=== PATIENT | female | born 1940 | race Caucasian/White ===

== ENCOUNTER → 2021-02-09 | Outpatient (CLI) | payer MEDICARE, OTHER ==
[~2021-02-09] MED LIST: ATOR20TA OR; CALCTAB83 PO; CARB0.5D8 OP; ESOM40CA39 OR; IRBE75TA30 OR; LEVO88TA4 OR; LOSA-69 PO; LUMIGAN; MULT-1018 PO; RALO60TA13 PO; TRIAPOW43 PO; [UNRECOGNIZED DRUG - OTHER]
== END | disposition home or self-care (01) ==
LOC: Rad HDHVI 07:46
PROVIDERS: ATTEND Internal Medicine Cardiovascular Disease
DX: Z01.810 Encounter for preprocedural cardiovascular examination (principal)
CPT/HCPCS: 93306

== ENCOUNTER → 2021-02-14 | Outpatient (CLI) | payer MEDICARE, OTHER ==
[~2021-02-14] VITALS: Ht 165.1 cm; Wt 67.1 kg
[~2021-02-14] MED LIST changes: +ADENOSINE 56 MG in GIVE UN-DILUTED 0 ML IV ONE; +ADENOSINE 90 MG/30 ML INJ IV ONE
== END | disposition home or self-care (01) ==
LOC: Rad HDHVI 09:22
PROVIDERS: ATTEND Internal Medicine Cardiovascular Disease
DX: Z01.810 Encounter for preprocedural cardiovascular examination (principal); I10 Essential (primary) hypertension; E78.5 Hyperlipidemia, unspecified
CPT/HCPCS: 78452; 93005; 96374; 96375; A9500; J0153

== ENCOUNTER 2021-03-02 13:12 | Emergency (ER) | payer MEDICARE, OTHER ==
[~2021-03-02] VITALS: Ht 165.1 cm; Wt 67.1 kg
[~2021-03-02 13:12] MED LIST changes: -ADENOSINE 56 MG in GIVE UN-DILUTED 0 ML IV ONE; -ADENOSINE 90 MG/30 ML INJ IV ONE
[2021-03-02] MEDS ORDERED: SODIUM CHLORIDE 0.9% 1,000 ML IVB ONE (14:15)
[2021-03-02] MEDS ORDERED: ONDANSETRON HCL 4 MG/2 ML VIAL IV ONE (14:15)
[2021-03-02 15:19] LABS: Basophils # (auto) 0 10 ^3/uL (0-0.2); Basophils % (auto) 0.4 % (0.0-2.0); Eosinophils # (auto) 0.4 10 ^3/uL (0-0.8); Eosinophils % (auto) 5.1 % (0.0-7.0); Hematocrit 42.8 % (36.0-46.0); Hemoglobin 14.5 g/dL (12.2-16.2); Lymphocytes # (auto) 1.7 10 ^3/uL (0.4-5.4); Lymphocytes % (auto) 21.5 % (10.0-50.0); Mean Corpuscular Hemoglobin 31.6 pg (28.0-32.0); Mean Corpuscular Hgb Conc. 33.9 g/dL (32.0-36.0); Mean Corpuscular Volume 93.3 fL (80.0-100.0); Monocytes # (auto) 0.6 10 ^3/uL (0-1.3); Monocytes % (auto) 8.1 % (0.0-12.0); Neutrophils % (auto) 64.9 % (37.0-80.0); Nucleated Red Blood Cells % 0.2 %; Red Blood Cells 4.59 10^6/uL (4.0-5.20); White Blood Cell 7.7 10^3/uL (4.4-10.8)
[2021-03-02 15:33] LABS: Albumin 3.6 g/dL (3.4-5.0); Potassium 3.2 mmol/L (3.5-5.1)
[2021-03-02 15:36] LABS: BUN/Creatinine Ratio 17.6
[2021-03-02 15:39] LABS: Bilirubin, Total 0.9 mg/dL (0.2-1.0)
[2021-03-02 15:50] LABS: INR 0.95 (0.9-1.15); Partial Thromboplastin Time 22.5 sec (23.0-31.2)
[2021-03-02 16:51] LABS: Urine Bacteria FEW /hpf (None Seen); Urine Blood Negative /uL (Negative); Urine Specific Gravity 1.007 (1.001-1.035); Urine WBC 1 /hpf (0 - 5)
[2021-03-02] MEDS ORDERED: POTASSIUM CHL 20 Meq TABLET PO ONE (17:15)
[2021-03-02] MEDS ORDERED: cefTRIAXone 1GM/50ML D5W 50 ML IV ONE (17:15)
[2021-03-02] MEDS ORDERED: diphenhdrAMINE HCL 50 MG/1 ML VL IV ONE (18:15)
[2021-03-02 18:29] VITALS: BP 145/64
== END 2021-03-02 19:20 | disposition home or self-care (01) ==
LOC: ER 13:12
DX: N30.00 Acute cystitis without hematuria (principal); K57.90 Diverticulosis of intestine, part unspecified, without perforation or abscess without bleeding; E87.6 Hypokalemia; R11.0 Nausea; R07.89 Other chest pain; I10 Essential (primary) hypertension; E78.5 Hyperlipidemia, unspecified; E03.9 Hypothyroidism, unspecified; K21.9 Gastro-esophageal reflux disease without esophagitis; F41.9 Anxiety disorder, unspecified; F32.9 Major depressive disorder, single episode, unspecified; Z79.899 Other long term (current) drug therapy; Z90.710 Acquired absence of both cervix and uterus; Z90.89 Acquired absence of other organs
CPT/HCPCS: 36415; 71045; 74176; 80053; 81001; 83690; 83735; 85025; 85610; 85730; 93005; 96365; 96375; 99285; J0696; J1200; J2405; 92950

== ENCOUNTER → 2021-04-12 | Day surgery (SDC) | payer MEDICARE, OTHER ==
[2021-04-07 10:48] LABS: Basophils # (auto) 0.1 10 ^3/uL (0-0.2); Eosinophils # (auto) 0.1 10 ^3/uL (0-0.8); Eosinophils % (auto) 2.1 % (0.0-7.0); Hematocrit 40.6 % (36.0-46.0); Lymphocytes # (auto) 1.5 10 ^3/uL (0.4-5.4); Lymphocytes % (auto) 31.4 % (10.0-50.0); Mean Corpuscular Hemoglobin 32.2 pg (28.0-32.0); Mean Corpuscular Hgb Conc. 34.4 g/dL (32.0-36.0); Mean Corpuscular Volume 93.6 fL (80.0-100.0); Monocytes # (auto) 0.4 10 ^3/uL (0-1.3); Monocytes % (auto) 7.9 % (0.0-12.0); Neutrophils # (auto) 2.8 10 ^3/uL (1.6-8.6); Neutrophils % (auto) 57.6 % (37.0-80.0); Platelet Count (auto) 139 10^3/uL (140-450); Red Blood Cells 4.34 10^6/uL (4.0-5.20); Red Cell Distribution Width 12.8 % (11.8-14.3); White Blood Cell 4.9 10^3/uL (4.4-10.8)
[2021-04-07 11:02] LABS: INR 0.94 (0.9-1.15); Partial Thromboplastin Time 23.4 sec (23.0-31.2); Urine Bacteria NONE SEEN /hpf (None Seen); Urine Blood Negative /uL (Negative); Urine Mucus FEW (None Seen); Urine Specific Gravity 1.017 (1.001-1.035); Urine WBC 1 /hpf (0 - 5)
[2021-04-07 12:02] LABS: Albumin 3.6 g/dL (3.4-5.0); Calcium 9.6 mg/dL (8.5-10.1); Potassium 4.2 mmol/L (3.5-5.1)
[2021-04-07 12:07] LABS: BUN/Creatinine Ratio 19.8; Bilirubin, Total 0.6 mg/dL (0.2-1.0); Total Protein 6.7 g/dL (6.4-8.2)
[~2021-04-12] VITALS: Ht 165.1 cm; Wt 64.4 kg
[~2021-04-12] MED LIST changes: +BUPIVACAINE 0.25% INJ 50ML VIAL ONE; -CALCTAB83 PO; -CARB0.5D8 OP; -ESOM40CA39 OR; +GLYCOPYRROLATE 0.2 MG/ML 1ML VIAL ONE; +HYDROmorphone HCL 2 MG/ML VL IV PRN; +LIDOCAINE 2% (LOCAL ANESTH.) PF 5ml SDV ONE; +LIDOCAINE W/ EPINEPHRINE 1% 20ML VIAL ONE; -LOSA-69 PO; +MIDAZOLAM HCL 1MG/1ML-2 ML VIAL ONE; -MULT-1018 PO; +ONDANSETRON HCL 4 MG/2 ML VIAL IV PRN; +ONDANSETRON HCL 4 MG/2 ML VIAL ONE; +PROPOFOL 10 MG/ML 20 ML IV ONE; +ROCURONIUM 10MG/ML 10ML VIAL IV ONE; +ceFAZolin 1GM/50ML 100 ML IV ONE; +fentaNYL CITRATE 100 MCG/2 ML VL ONE
[2021-04-12 10:50] VITALS: BP 137/63
== END | disposition home or self-care (01) ==
LOC: SUR 07:06
PROVIDERS: ATTEND Surgery
DX: K40.90 Unilateral inguinal hernia, without obstruction or gangrene, not specified as recurrent (principal); H40.9 Unspecified glaucoma; K44.9 Diaphragmatic hernia without obstruction or gangrene; I10 Essential (primary) hypertension; Z68.23 Body mass index [BMI] 23.0-23.9, adult; E07.9 Disorder of thyroid, unspecified; F32.9 Major depressive disorder, single episode, unspecified; K21.9 Gastro-esophageal reflux disease without esophagitis; Z20.822 Contact with and (suspected) exposure to COVID-19; Z98.890 Other specified postprocedural states; Z79.899 Other long term (current) drug therapy
CPT/HCPCS: 36415; 49505; 80053; 81001; 85025; 85610; 85730; J0690; J2001; J2250; J2405; J2704; J3010; J3490; Q4100; U0003

== ENCOUNTER → 2022-12-18 | Outpatient (CLI) | payer MEDICARE, OTHER ==
[~2022-12-18] MED LIST changes: -BUPIVACAINE 0.25% INJ 50ML VIAL ONE; -GLYCOPYRROLATE 0.2 MG/ML 1ML VIAL ONE; -HYDROmorphone HCL 2 MG/ML VL IV PRN; -LIDOCAINE 2% (LOCAL ANESTH.) PF 5ml SDV ONE; -LIDOCAINE W/ EPINEPHRINE 1% 20ML VIAL ONE; -MIDAZOLAM HCL 1MG/1ML-2 ML VIAL ONE; -ONDANSETRON HCL 4 MG/2 ML VIAL IV PRN; -ONDANSETRON HCL 4 MG/2 ML VIAL ONE; -PROPOFOL 10 MG/ML 20 ML IV ONE; -ROCURONIUM 10MG/ML 10ML VIAL IV ONE; -ceFAZolin 1GM/50ML 100 ML IV ONE; -fentaNYL CITRATE 100 MCG/2 ML VL ONE
[2022-12-18 11:02] LABS: Basophils # (auto) 0 10 ^3/uL (0-0.2); Basophils % (auto) 0.9 % (0.0-2.0); Eosinophils # (auto) 0.1 10 ^3/uL (0-0.8); Hematocrit 38.3 % (36.0-46.0); Hemoglobin 13.1 g/dL (12.2-16.2); Lymphocytes # (auto) 1.6 10 ^3/uL (0.4-5.4); Lymphocytes % (auto) 32.8 % (10.0-50.0); Mean Corpuscular Hemoglobin 32.6 pg (28.0-32.0); Mean Corpuscular Hgb Conc. 34.1 g/dL (32.0-36.0); Mean Corpuscular Volume 95.4 fL (80.0-100.0); Monocytes # (auto) 0.4 10 ^3/uL (0-1.3); Monocytes % (auto) 8.7 % (0.0-12.0); Neutrophils # (auto) 2.6 10 ^3/uL (1.6-8.6); Neutrophils % (auto) 55.6 % (37.0-80.0); Nucleated Red Blood Cells % 0.1 %; Red Blood Cells 4.02 10^6/uL (4.0-5.20); Red Cell Distribution Width 13.7 % (11.8-14.3); White Blood Cell 4.7 10^3/uL (4.4-10.8)
[2022-12-18 11:28] LABS: Albumin 3.7 g/dL (3.4-5.0); Calcium 9.3 mg/dL (8.5-10.1); Potassium 3.6 mmol/L (3.5-5.1)
[2022-12-18 11:31] LABS: BUN/Creatinine Ratio 19.2; Bilirubin, Total 0.8 mg/dL (0.2-1.0); Total Protein 6.7 g/dL (6.4-8.2)
[2022-12-18 11:33] LABS: Free T4 (Free Thyroxine) 1.78 ng/dL (0.89-1.76)
[2022-12-18 11:34] LABS: Free T3 3.12 pg/mL (2.3-4.2)
== END | disposition home or self-care (01) ==
LOC: LAB 10:29
PROVIDERS: ATTEND Internal Medicine
DX: I10 Essential (primary) hypertension (principal); E03.9 Hypothyroidism, unspecified
CPT/HCPCS: 36415; 80053; 84439; 84443; 84481; 85025

== ENCOUNTER → 2023-03-22 | Outpatient (CLI) | payer MEDICARE, OTHER ==
[~2023-03-22] MED LIST changes: +BIMA0.01 EACHEYE; +CITA-73 PO; +CLOP75TA28 PO; +LEVO88CA2 PO; +LISI40TA16 PO; +METO25TA93 PO; -RALO60TA13 PO; +RALO60TA14 PO
[2023-03-22 08:55] VITALS: BP 191/84
[2023-03-22 09:09] VITALS: BP 188/84
== END | disposition home or self-care (01) ==
LOC: CHF HDHVI 08:32
PROVIDERS: ATTEND Internal Medicine Cardiovascular Disease
DX: Z01.818 Encounter for other preprocedural examination (principal); R00.1 Bradycardia, unspecified; I10 Essential (primary) hypertension; I20.0 Unstable angina
CPT/HCPCS: G0463

== ENCOUNTER 2023-03-28 06:52 | Day surgery (SDC) | payer MEDICARE, OTHER ==
[2023-03-22 10:54] LABS: Basophils # (auto) 0.1 10 ^3/uL (0-0.2); Basophils % (auto) 1.4 % (0.0-2.0); Eosinophils # (auto) 0.1 10 ^3/uL (0-0.8); Eosinophils % (auto) 1.6 % (0.0-7.0); Hematocrit 39.3 % (36.0-46.0); Hemoglobin 13.6 g/dL (12.2-16.2); Lymphocytes # (auto) 1.6 10 ^3/uL (0.4-5.4); Lymphocytes % (auto) 32.7 % (10.0-50.0); Mean Corpuscular Hemoglobin 32.4 pg (28.0-32.0); Mean Corpuscular Hgb Conc. 34.5 g/dL (32.0-36.0); Mean Corpuscular Volume 93.9 fL (80.0-100.0); Monocytes # (auto) 0.4 10 ^3/uL (0-1.3); Monocytes % (auto) 7.5 % (0.0-12.0); Neutrophils # (auto) 2.9 10 ^3/uL (1.6-8.6); Neutrophils % (auto) 56.8 % (37.0-80.0); Nucleated Red Blood Cells % 0.1 %; Red Blood Cells 4.18 10^6/uL (4.0-5.20); Red Cell Distribution Width 13.2 % (11.8-14.3)
[2023-03-22 11:15] LABS: INR 0.96 (0.9-1.15); Partial Thromboplastin Time 24.3 sec (24.6-33.4)
[2023-03-22 11:30] LABS: BUN/Creatinine Ratio 27.9 (10.0-20.0); Calcium 9.4 mg/dL (8.5-10.1); Potassium 3.9 mmol/L (3.5-5.1)
[~2023-03-28] VITALS: Ht 160 cm; Wt 56.7 kg
[2023-03-28] VITALS (10 sets, daily range): BP systolic 126–164; BP diastolic 52–64
[~2023-03-28 06:52] MED LIST changes: -IRBE75TA30 OR; -LEVO88TA4 OR; -RALO60TA14 PO; -TRIAPOW43 PO; -[UNRECOGNIZED DRUG - OTHER]
[2023-03-28] MEDS ORDERED: LIDOCAINE 2%HCL (LOCAL ANESTH.) INJ 20ML MDV ONE (09:25)
[2023-03-28] MEDS ORDERED: IODIXANOL 320MG/ML 100ML BTL IV ONE (09:26)
[2023-03-28] MEDS ORDERED: ANGIOMAX 250 MG VIAL IV ONE (09:28)
[2023-03-28] MEDS ORDERED: MIDAZOLAM HCL 2MG/2ML 2ml VIAL (1mg/ml) ONE (09:28)
[2023-03-28] MEDS ORDERED: SODIUM CHL 0.9% 0 ML ONE (09:28)
[2023-03-28] MEDS ORDERED: fentaNYL CITRATE 100 MCG/2 ML VL ONE (09:28)
[2023-03-28] MEDS ORDERED: IOHEXOL 350 MG/ML 500ML BOTTLE IJ ONE (09:54)
== END 2023-03-28 12:35 | disposition home or self-care (01) ==
LOC: CATH 06:52
PROVIDERS: ATTEND Internal Medicine Cardiovascular Disease
DX: R07.89 Other chest pain (principal); I10 Essential (primary) hypertension; E78.5 Hyperlipidemia, unspecified; E03.9 Hypothyroidism, unspecified; Z79.01 Long term (current) use of anticoagulants; Z79.899 Other long term (current) drug therapy; R06.02 Shortness of breath; R94.39 Abnormal result of other cardiovascular function study
CPT/HCPCS: 36415; 80048; 85025; 85610; 85730; 93458; C1894; J2250; J3010; Q9967; 99152

== ENCOUNTER → 2023-05-31 | Outpatient (CLI) | payer MEDICARE, OTHER | END | disposition home or self-care (01) | LOC: Rad HDHVI 13:15 | PROVIDERS: ATTEND Internal Medicine Cardiovascular Disease | DX: M19.012 Primary osteoarthritis, left shoulder (principal) | CPT/HCPCS: 73030 ==

== ENCOUNTER → 2024-02-19 | Outpatient (CLI) | payer MEDICARE, OTHER | END | disposition home or self-care (01) | LOC: Rad HDHVI 11:42 | PROVIDERS: ATTEND Internal Medicine Cardiovascular Disease | DX: M19.042 Primary osteoarthritis, left hand (principal); M19.041 Primary osteoarthritis, right hand | CPT/HCPCS: 73130 ==

== ENCOUNTER 2024-03-05 08:26 | Inpatient (IN) | payer MEDICARE, OTHER ==
[2024-03-05] VITALS (7 sets, daily range): BP systolic 111–129; BP diastolic 47–64; PULSE 63–83; RESP 13–18; TEMP 97.8–97.9; O2SAT 92–99
[~2024-03-05] VITALS: Ht 160 cm; Wt 60.1 kg
[2024-03-05] MEDS: methylPREDNISolone SOD SUCC 125 MG/2 ML VL IV ONE (09:40)
[2024-03-05] MEDS: ALBUTEROL SULF 2.5 MG/0.5ML(0.5%) NEB SOLN NEB ONE (09:52)
[2024-03-05] MEDS: IPRATROPIUM BROM 0.5 MG/2.5ML INH SOL NEB ONE (09:52)
[2024-03-05 09:57] LABS: Basophils # (auto) 0 10 ^3/uL (0-0.2); Basophils % (auto) 0.5 % (0.0-2.0); Eosinophils # (auto) 0.1 10 ^3/uL (0-0.8); Eosinophils % (auto) 1.1 % (0.0-7.0); Hematocrit 40.8 % (36.0-46.0); Hemoglobin 13.4 g/dL (12.2-16.2); Lymphocytes % (auto) 20.6 % (10.0-50.0); Mean Corpuscular Hemoglobin 31.4 pg (28.0-32.0); Mean Corpuscular Hgb Conc. 32.8 g/dL (32.0-36.0); Mean Corpuscular Volume 95.6 fL (80.0-100.0); Monocytes # (auto) 0.7 10 ^3/uL (0-1.3); Neutrophils # (auto) 3.2 10 ^3/uL (1.6-8.6); Neutrophils % (auto) 63.8 % (37.0-80.0); Red Blood Cells 4.27 10^6/uL (4.0-5.20)
[2024-03-05 10:09] LABS: Chloride 106 mmol/L (98-107); Potassium 4.3 mmol/L (3.5-5.1); Sodium 138 mmol/L (136-145)
[2024-03-05 10:10] LABS: Anion Gap 6 (5-15); Calcium 9.3 mg/dL (8.5-10.1); Carbon Dioxide 26 mmol/L (20-30)
[2024-03-05 10:15] LABS: BUN/Creatinine Ratio 13.5 (10.0-20.0); Blood Urea Nitrogen 15 mg/dL (9-23); Glucose 99 mg/dL (74-106)
[2024-03-05 11:40] LABS: Rapid Influenza A Negative (Negative); Rapid Influenza B Negative (Negative)
[2024-03-05 11:41] LABS: COVID19 ANTIGEN SOFIA FIA NEGATIVE (NEGATIVE)
[2024-03-05 13:28] LABS: Urine Bacteria None Seen /hpf (None Seen)
[2024-03-05 13:39] LABS: Urine Blood Negative /uL (Negative); Urine Clarity Clear (Clear); Urine Color Light-Yellow (Yellow); Urine Protein, UAD Negative (Negative); Urine Urobilinogen Normal (Negative); Urine WBC 1 /hpf (0 - 5)
[2024-03-05] MEDS ORDERED: CYAN-17 PO (15:37)
[2024-03-05] MEDS ORDERED: LEVO88TA2 PO (15:37)
[2024-03-05] MEDS ORDERED: BACL20TA PO (15:37)
[2024-03-05] MEDS ORDERED: METO25TA93 PO (15:37)
[2024-03-05] MEDS ORDERED: MULTTAB75 PO (15:37)
[2024-03-05] MEDS ORDERED: AMIO200T33 PO (15:37)
[2024-03-05] MEDS ORDERED: CITA-73 PO (15:37)
[2024-03-05] MEDS ORDERED: RIVA10TA PO (15:37)
[2024-03-05] MEDS ORDERED: SACU1TAB PO (15:37)
[2024-03-05] MEDS ORDERED: CHOL100047 PO (15:37)
[2024-03-05] MEDS ORDERED: ATOR20TA50 PO (15:37)
[2024-03-05] MEDS ORDERED: TRAM50TA2 PO (15:37)
[2024-03-05] MEDS ORDERED: RALO60TA14 GT (15:37)
[2024-03-05 16:37] LABS: INR 1.24 (0.9-1.15); Prothrombin Time 12.9 sec (9.3-11.8)
[2024-03-05] MEDS: IPRATROPIUM BROM 0.5 MG/2.5ML INH SOL NEB PRN (16:53)
[2024-03-05] MEDS: ALBUTEROL SULF 2.5 MG/0.5ML(0.5%) NEB SOLN NEB PRN (16:53)
[2024-03-05] MEDS: CITALOPRAM HYDROBR 20 MG TAB PO ONE (22:16)
[2024-03-05] MEDS: methylPREDNISolone SOD SUCC 40 MG/ML VL IV SCH (22:16)
[2024-03-05] MEDS: PANTOPRAZOLE 40 MG/10 ML VIAL INJ IV ONE (22:16)
[2024-03-05] MEDS: SACUBITRIL-VALSARTAN 24mg/26mg TAB PO SCH (22:17)
[2024-03-06] VITALS (10 sets, daily range): BP systolic 112–142; BP diastolic 49–78; PULSE 68–85; RESP 14–20; TEMP 97.8–98.2; O2SAT 92–96
[2024-03-06] MEDS: LEVOTHYROXINE SODIUM 88 MCG TAB PO SCH (06:15)
[2024-03-06] MEDS: AMIODARONE HCL 200 MG TAB PO SCH (09:21)
[2024-03-06] MEDS: RIVAROXABAN 10 MG TAB PO SCH (09:21)
[2024-03-06] MEDS: MULTIPLE VITAMINS W/ MINERALS TAB PO SCH (09:21)
[2024-03-06] MEDS: PANTOPRAZOLE 40 MG/10 ML VIAL INJ IV SCH (09:21)
[2024-03-06] MEDS: CITALOPRAM HYDROBR 20 MG TAB PO SCH (09:22)
[2024-03-06] MEDS: CHOLECALCIFEROL (VITD3) 1,000UNIT=25mCg TAB PO SCH (09:22)
[2024-03-06] MEDS: RALOXIFENE HCL 60 MG TAB PO SCH (10:00)
[2024-03-06] MEDS ORDERED: LEVOTHYROXINE SODIUM 88 MCG TAB PO SCH (10:00)
[2024-03-06] MEDS ORDERED: LEVOTHYROXINE SODIUM 88 MCG PO SCH (10:00)
[2024-03-06 10:10] LABS: Basophils # (auto) 0 10 ^3/uL (0-0.2); Eosinophils # (auto) 0 10 ^3/uL (0-0.8); Hematocrit 41.8 % (36.0-46.0); Hemoglobin 13.6 g/dL (12.2-16.2); Lymphocytes # (auto) 0.9 10 ^3/uL (0.4-5.4); Mean Corpuscular Hemoglobin 31.3 pg (28.0-32.0); Mean Corpuscular Hgb Conc. 32.5 g/dL (32.0-36.0); Mean Corpuscular Volume 96.3 fL (80.0-100.0); Monocytes # (auto) 0.7 10 ^3/uL (0-1.3); Monocytes % (auto) 5.6 % (0.0-12.0); Neutrophils # (auto) 11.2 10 ^3/uL (1.6-8.6); Neutrophils % (auto) 87.4 % (37.0-80.0); Nucleated Red Blood Cells % 0.1 %; Red Blood Cells 4.34 10^6/uL (4.0-5.20); Red Cell Distribution Width 13.2 % (11.8-14.3); White Blood Cell 12.9 10^3/uL (4.4-10.8)
[2024-03-06 10:28] LABS: Alanine Aminotransferase 19 U/L (7-40); Albumin 3.8 g/dL (3.2-4.8); Alkaline Phosphatase 33 U/L (46-116); Anion Gap 8 (5-15); Aspartate Aminotransferase 21 U/L (13-40); BUN/Creatinine Ratio 19.8 (10.0-20.0); Blood Urea Nitrogen 19 mg/dL (9-23); Calcium 9.3 mg/dL (8.5-10.1); Carbon Dioxide 24 mmol/L (20-30); Chloride 108 mmol/L (98-107); Glucose 116 mg/dL (74-106); Potassium 3.9 mmol/L (3.5-5.1); Sodium 140 mmol/L (136-145)
[2024-03-06 10:29] LABS: Bilirubin, Total 0.4 mg/dL (0.2-1.0); Total Protein 6.1 g/dL (5.7-8.2)
[2024-03-06] MEDS: BIMATOPROST EACHEYE SCH (18:01)
[2024-03-06] MEDS: ATORVASTATIN 20 MG TAB PO SCH (21:02)
[2024-03-07] VITALS (9 sets, daily range): BP systolic 109–144; BP diastolic 51–72; PULSE 64–81; RESP 14–18; TEMP 98.1–98.5; O2SAT 91–95
[2024-03-07 06:22] LABS: Basophils # (auto) 0 10 ^3/uL (0-0.2); Basophils % (auto) 0.1 % (0.0-2.0); Eosinophils # (auto) 0 10 ^3/uL (0-0.8); Hematocrit 40.8 % (36.0-46.0); Hemoglobin 13.9 g/dL (12.2-16.2); Lymphocytes # (auto) 0.8 10 ^3/uL (0.4-5.4); Lymphocytes % (auto) 5.5 % (10.0-50.0); Mean Corpuscular Hemoglobin 32.4 pg (28.0-32.0); Mean Corpuscular Hgb Conc. 34.1 g/dL (32.0-36.0); Mean Corpuscular Volume 94.9 fL (80.0-100.0); Monocytes # (auto) 0.3 10 ^3/uL (0-1.3); Neutrophils # (auto) 13.1 10 ^3/uL (1.6-8.6); Neutrophils % (auto) 92.4 % (37.0-80.0); Nucleated Red Blood Cells % 0.1 %; Red Cell Distribution Width 13.1 % (11.8-14.3); White Blood Cell 14.1 10^3/uL (4.4-10.8)
[2024-03-07 06:48] LABS: Alanine Aminotransferase 20 U/L (7-40); Albumin 3.7 g/dL (3.2-4.8); Alkaline Phosphatase 31 U/L (46-116); Anion Gap 6 (5-15); Aspartate Aminotransferase 18 U/L (13-40); BUN/Creatinine Ratio 24.7 (10.0-20.0); Bilirubin, Total 0.4 mg/dL (0.2-1.0); Blood Urea Nitrogen 24 mg/dL (9-23); Calcium 9.4 mg/dL (8.5-10.1); Carbon Dioxide 27 mmol/L (20-30); Chloride 106 mmol/L (98-107); Glucose 181 mg/dL (74-106); Magnesium 2.1 mg/dL (1.6-2.6); Potassium 4.3 mmol/L (3.5-5.1); Sodium 139 mmol/L (136-145)
[2024-03-07 06:49] LABS: Total Protein 5.8 g/dL (5.7-8.2)
[2024-03-07] MEDS ORDERED: ACETAMINOPHEN 325 MG TAB PO PRN (11:15)
[2024-03-07] MEDS: cefTRIAXone 1GM/50ML D5W 50 ML IV ONE (11:25)
[2024-03-07 16:51] LABS: Urine Blood Negative /uL (Negative); Urine Clarity Clear (Clear); Urine Color Light-Yellow (Yellow); Urine Protein, UAD Negative (Negative); Urine Specific Gravity 1.012 (1.001-1.035); Urine Urobilinogen Normal (Negative)
[2024-03-08] VITALS (10 sets, daily range): BP systolic 115–147; BP diastolic 53–75; PULSE 68–106; RESP 16–19; TEMP 97.6–98.7; O2SAT 73–94
[2024-03-08] MEDS: cefTRIAXone 1GM/50ML D5W 50 ML IV SCH (08:49)
[2024-03-09 05:00] VITALS: BP 128/62; PULSE 64; RESP 20; TEMP 98; O2SAT 94
[2024-03-09 05:10] LABS: Basophils # (auto) 0 10 ^3/uL (0-0.2); Basophils % (auto) 0.1 % (0.0-2.0); Eosinophils # (auto) 0 10 ^3/uL (0-0.8); Hematocrit 38.8 % (36.0-46.0); Hemoglobin 13.2 g/dL (12.2-16.2); Lymphocytes # (auto) 1.3 10 ^3/uL (0.4-5.4); Lymphocytes % (auto) 13.6 % (10.0-50.0); Mean Corpuscular Hemoglobin 32.2 pg (28.0-32.0); Mean Corpuscular Hgb Conc. 33.9 g/dL (32.0-36.0); Mean Corpuscular Volume 94.9 fL (80.0-100.0); Monocytes # (auto) 0.7 10 ^3/uL (0-1.3); Monocytes % (auto) 7.1 % (0.0-12.0); Neutrophils # (auto) 7.8 10 ^3/uL (1.6-8.6); Neutrophils % (auto) 79.2 % (37.0-80.0); Red Blood Cells 4.09 10^6/uL (4.0-5.20); Red Cell Distribution Width 12.8 % (11.8-14.3); White Blood Cell 9.9 10^3/uL (4.4-10.8)
[2024-03-09 05:28] LABS: Alanine Aminotransferase 18 U/L (7-40); Albumin 3.3 g/dL (3.2-4.8); Alkaline Phosphatase 27 U/L (46-116); Anion Gap 5 (5-15); Aspartate Aminotransferase 15 U/L (13-40); BUN/Creatinine Ratio 23.5 (10.0-20.0); Blood Urea Nitrogen 23 mg/dL (9-23); Calcium 9.1 mg/dL (8.5-10.1); Carbon Dioxide 27 mmol/L (20-30); Chloride 108 mmol/L (98-107); Glucose 117 mg/dL (74-106); Potassium 4.2 mmol/L (3.5-5.1); Sodium 140 mmol/L (136-145)
[2024-03-09 05:29] LABS: Bilirubin, Total 0.4 mg/dL (0.2-1.0); Total Protein 5.2 g/dL (5.7-8.2)
[2024-03-09 08:00] VITALS: BP 156/68; PULSE 65; PULSE 66; RESP 17; TEMP 97.3; O2SAT 96
[2024-03-09 09:00] VITALS: BP 156/68; PULSE 65; RESP 17; TEMP 97.3; O2SAT 96
[2024-03-09 10:30] VITALS: O2SAT 92
[2024-03-09 12:56] VITALS: BP 146/71; PULSE 78; RESP 18; TEMP 97.5; O2SAT 98
[2024-03-09 14:53] VITALS: BP 146/71; PULSE 78; RESP 18; TEMP 97.5; O2SAT 98
== END 2024-03-09 15:35 | disposition home health service (06) | DRG 202 ==
LOC: ER 08:26 → TELE 15:17 → TELE-CENTR 18:21
PROVIDERS: ADMIT Nurse Practitioner Family; ATTEND Internal Medicine
DX: J40 Bronchitis, not specified as acute or chronic (principal); G93.41 Metabolic encephalopathy; J96.01 Acute respiratory failure with hypoxia; N17.0 Acute kidney failure with tubular necrosis; J44.0 Chronic obstructive pulmonary disease with (acute) lower respiratory infection; J44.1 Chronic obstructive pulmonary disease with (acute) exacerbation; E03.9 Hypothyroidism, unspecified; E78.5 Hyperlipidemia, unspecified; F32.A Depression, unspecified; F41.9 Anxiety disorder, unspecified; D69.6 Thrombocytopenia, unspecified; M81.0 Age-related osteoporosis without current pathological fracture; I12.9 Hypertensive chronic kidney disease with stage 1 through stage 4 chronic kidney disease, or unspecified chronic kidney disease; I08.0 Rheumatic disorders of both mitral and aortic valves; N18.9 Chronic kidney disease, unspecified; I48.0 Paroxysmal atrial fibrillation; T46.2X5A Adverse effect of other antidysrhythmic drugs, initial encounter; J98.4 Other disorders of lung; M47.899 Other spondylosis, site unspecified; Z80.0 Family history of malignant neoplasm of digestive organs; Z87.440 Personal history of urinary (tract) infections; Z79.01 Long term (current) use of anticoagulants; Z90.710 Acquired absence of both cervix and uterus; Z80.3 Family history of malignant neoplasm of breast; Y92.89 Other specified places as the place of occurrence of the external cause
CPT/HCPCS: 36415; 70450; 71045; 71046; 80048; 80053; 81001; 81003; 83735; 83880; 84439; 84443; 84484; 85025; 85379; 85384; 85610; 87086; 87426; 87804; 94640; 97116; 97163; 97530; 99291; C9113; G0378

== ENCOUNTER → 2024-03-25 | Outpatient (CLI) | payer MEDICARE, OTHER ==
[~2024-03-25] MED LIST changes: +AMIO200T33 PO; +ATOR20TA50 PO; +BACL20TA PO; +CHOL100047 PO; -CLOP75TA28 PO; +CYAN-17 PO; +MULTTAB75 PO; +RALO60TA14 GT; +RIVA10TA PO; +SACU1TAB PO; +TRAM50TA2 PO
== END | disposition home or self-care (01) ==
LOC: Rad HDHVI 12:18
PROVIDERS: ATTEND Internal Medicine Cardiovascular Disease
DX: Z01.818 Encounter for other preprocedural examination (principal); R06.02 Shortness of breath
CPT/HCPCS: 71046

== ENCOUNTER → 2024-04-16 | Outpatient (CLI) | payer MEDICARE, OTHER | END | disposition home or self-care (01) | LOC: Rad HDHVI 08:59 | PROVIDERS: ATTEND Internal Medicine Cardiovascular Disease | DX: I08.3 Combined rheumatic disorders of mitral, aortic and tricuspid valves (principal); R00.2 Palpitations; I11.9 Hypertensive heart disease without heart failure | CPT/HCPCS: 93306 ==

== ENCOUNTER → 2024-05-18 | Outpatient (CLI) | payer MEDICARE, OTHER | END | disposition home or self-care (01) | LOC: Rad HDHVI 12:10 | PROVIDERS: ATTEND Internal Medicine Cardiovascular Disease | DX: S09.90XA Unspecified injury of head, initial encounter (principal); X58.XXXA Exposure to other specified factors, initial encounter; Y93.89 Activity, other specified; Y92.89 Other specified places as the place of occurrence of the external cause; Y99.8 Other external cause status | CPT/HCPCS: 70200; 70450 ==

== ENCOUNTER → 2024-09-16 | Day surgery (SDC) | payer MEDICARE, OTHER ==
[2024-09-11 11:54] LABS: Basophils # (auto) 0.1 10 ^3/uL (0-0.2); Basophils % (auto) 1.9 % (0.0-2.0); Eosinophils # (auto) 0.1 10 ^3/uL (0-0.8); Eosinophils % (auto) 1.6 % (0.0-7.0); Hematocrit 40.9 % (36.0-46.0); Lymphocytes # (auto) 1.2 10 ^3/uL (0.4-5.4); Lymphocytes % (auto) 18.1 % (10.0-50.0); Mean Corpuscular Hemoglobin 33.8 pg (28.0-32.0); Mean Corpuscular Hgb Conc. 34.3 g/dL (32.0-36.0); Mean Corpuscular Volume 98.6 fL (80.0-100.0); Monocytes # (auto) 0.5 10 ^3/uL (0-1.3); Monocytes % (auto) 7.6 % (0.0-12.0); Neutrophils # (auto) 4.5 10 ^3/uL (1.6-8.6); Neutrophils % (auto) 70.8 % (37.0-80.0); Platelet Count (auto) 159 10^3/uL (140-450); Red Blood Cells 4.15 10^6/uL (4.0-5.20); Red Cell Distribution Width 13.6 % (11.8-14.3); White Blood Cell 6.4 10^3/uL (4.4-10.8)
[2024-09-11 12:03] LABS: INR 0.97 (0.9-1.15); Partial Thromboplastin Time 24.4 SEC (24.5-34.5); Prothrombin Time 10.3 sec (9.3-11.8)
[2024-09-11 12:04] LABS: Alanine Aminotransferase 15 U/L (7-40); Albumin 4.3 g/dL (3.2-4.8); Alkaline Phosphatase 34 U/L (46-116); Anion Gap 6 (5-15); Aspartate Aminotransferase 13 U/L (13-40); BUN/Creatinine Ratio 15.2 (10.0-20.0); Bilirubin, Total 0.7 mg/dL (0.2-1.0); Blood Urea Nitrogen 15 mg/dL (9-23); Calcium 9.6 mg/dL (8.7-10.4); Carbon Dioxide 27 mmol/L (20-31); Chloride 107 mmol/L (98-107); Glucose 110 mg/dL (74-106); Sodium 140 mmol/L (136-145); Total Protein 6.6 g/dL (5.7-8.2)
[2024-09-11 12:15] LABS: Urine Bacteria FEW /hpf (None Seen); Urine Blood Negative /uL (Negative); Urine Clarity Clear (Clear); Urine Color Yellow (Yellow); Urine Mucus FEW (None Seen); Urine Protein, UAD Negative (Negative); Urine Specific Gravity 1.018 (1.001-1.035); Urine Urobilinogen Normal (Negative); Urine WBC 3 /hpf (0 - 5); Urine pH 5.5 (5.0-9.0)
[~2024-09-16] VITALS: Ht 157.5 cm; Wt 62.6 kg
[~2024-09-16] MED LIST changes: -ATOR20TA OR; -ATOR20TA50 PO; -BIMA0.01 EACHEYE; +BUPIVACAINE HCL 0.25% P/F 10 ML VIAL ONE; -CYAN-17 PO; +FLUT1AER3 IN; +KETOROLAC TROMETH 30 MG/ML 1ML VIAL ONE; +LIDOCAINE W/ EPINEPHRINE 1% 20ML VIAL ONE; -LISI40TA16 PO; +NETA1DRO OP; +ONDANSETRON HCL 4 MG/2 ML VIAL ONE; +PROPOFOL 10 MG/ML 20 ML IV ONE; -RALO60TA14 GT; +RALO60TA14 PO; +ceFAZolin 2 GM/D5W100ml 100 ML IV ONE
[2024-09-16 10:20] VITALS: PULSE 67; RESP 16; O2SAT 100
[2024-09-16 11:22] VITALS: RESP 16; O2SAT 99
--- NOTE | 2024-09-16 14:09 | DVHOP ---
DATE OF SURGERY: 09/16/2024 PREOPERATIVE DIAGNOSIS: Lipoma, right upper back. POSTOPERATIVE DIAGNOSIS: Lipoma, right upper back. SURGEON: Bhavesh Booth MD NEWS EDITOR: Emily lopez. ANESTHESIA: Sedation with local 1% Xylocaine with epinephrine, 0.25% Marcaine infiltration. PROCEDURE: Excision. DESCRIPTION OF PROCEDURE: Under adequate anesthesia with the patient prone position on the operating room table. Monitored by Dr. Fisher. The patient's back was prepped and draped and infiltrated with 0.25% Marcaine, Xylocaine mixture with epinephrine. The subcutaneous tissues divided and the lipoma encountered. It was submuscular in nature. The subscapularis muscle was incised for short segment and the lipoma was shelled out. It was submitted for histopathologic examination. The wound was irrigated. Hemostasis was meticulously accomplished and closure accomplished using Monocryl sutures, Dermabond glue and Steri-Strips. The patient remained stable throughout the procedure, left the operating room following an accurate needle and sponge count. The patient's daughter, Ezekiel was thoroughly informed at [phone]. Bhavesh Booth MD PF TID: [id number] RECEIPT: [id number]
== END | disposition home or self-care (01) ==
LOC: SUR 07:59
PROVIDERS: ATTEND Surgery
DX: D17.1 Benign lipomatous neoplasm of skin and subcutaneous tissue of trunk (principal); I10 Essential (primary) hypertension; E78.00 Pure hypercholesterolemia, unspecified; M81.0 Age-related osteoporosis without current pathological fracture; J44.9 Chronic obstructive pulmonary disease, unspecified; Z90.710 Acquired absence of both cervix and uterus; Z98.890 Other specified postprocedural states; Z88.1 Allergy status to other antibiotic agents; Z98.49 Cataract extraction status, unspecified eye; Z79.899 Other long term (current) drug therapy
CPT/HCPCS: 21932; 36415; 80053; 81001; 85025; 85610; 85730; 87086; J1885; J2405; J2704; J3490

== ENCOUNTER 2024-09-24 18:46 | Emergency (ER) | payer MEDICARE, OTHER ==
[~2024-09-24] VITALS: Ht 160 cm; Wt 67.0 kg
[~2024-09-24 18:46] MED LIST changes: -BUPIVACAINE HCL 0.25% P/F 10 ML VIAL ONE; -KETOROLAC TROMETH 30 MG/ML 1ML VIAL ONE; -LIDOCAINE W/ EPINEPHRINE 1% 20ML VIAL ONE; -ONDANSETRON HCL 4 MG/2 ML VIAL ONE; -PROPOFOL 10 MG/ML 20 ML IV ONE; -ceFAZolin 2 GM/D5W100ml 100 ML IV ONE
--- NOTE | 2024-09-24 19:01 | ED.PDOC ---
History of Present Illness HPI Comments 83-year-old female who came to ER for syncope. Patient states she was at home earlier when she felt dizzy, lightheaded, and had a syncopal attack, falling at her back at a carpeted floor. Patient states she passed out for a couple of minutes. Patient complaining of lower back pains. Patient is still able to ambulate but with difficulty. Blood sugar upon arrival was 220. Patient has no history of diabetes. Chief Complaint: Syncope Time Seen by MD: 19:01 Primary Care Provider: ELLIOTT Reviewed Notes: Nurses Notes Allergies: Coded Allergies: Ciprofloxacin (Verified Allergy, Severe, 03/07/24) Home Meds Reported Medications Eqhyxpqsxbf-Vcdorhdapdwk-Qvakp (Trelegy Ellipta 100-62.5-25 Mcg/INH) 1 Aer Aer, 1 AER IN, AER 09/14/24 Netarsudil Dimesylate-Latanopr (Rocklatan 0.02-0.005 %) 1 Umer Umer, 1 UMER OP, UMER 09/14/24 Baclofen (Baclofen) 20 Mg Tab, 10 MG PO TID, TAB 03/05/24 Tramadol Hcl (Tramadol Hcl) 50 Mg Tab, 75 MG PO TID, TAB 03/05/24 Amiodarone Hcl (Amiodarone Hcl) 200 Mg Tab, 200 MG PO DAILY, TAB 03/05/24 Rivaroxaban (XARELTO) 10 Mg Tab, 10 MG PO, TAB 03/05/24 Cholecalciferol (D3) 1,000 Unit Cap, 1000 UNIT PO DAILY, CAP 03/05/24 Multiple Vitamins W/ Minerals (Strovite One) Tab, 1 TAB PO DAILY, #30 TAB 03/05/24 Metoprolol Succinate (Metoprolol Succinate Er) 25 Mg Tab, 25 MG PO, TAB 03/05/24 Raloxifene Hydrochloride (EVISTA TABLET) 60 Mg Tb, 60 MG PO, TAB 03/05/24 Sacubitril-Valsartan (Entresto 24-26 mg) 1 Tab Tab, 1 TAB PO, TAB 03/05/24 Levothyroxine Sodium (Tirosint) 88 Mcg Cap, 88 MCG PO DAILY, CAP 03/22/23 Citalopram Hydrobromide (Citalopram Hydrobromide) 40 Mg Tab, 40 MG PO DAILY for 30 Days, MG 5/26/23 [Lumigan] No Conflict Check, 2.5 HS, ML 05/20/12 Information Source: Patient, Relative Mode of Arrival: Wheelchair Severity: Moderate Timing: Hours Duration: Since onset Prehospital treatment: None Past Medical History PAST MEDICAL HISTORY: Anxiety, Depression, HTN Surgical History: Hysterectomy, Tonsillectomy Surgical History (Other): Lipoma 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 Hx Family History Family History: Reviewed,noncontributory to illness Social History Smoker: Non-Smoker Alcohol: Denies ETOH Use Drugs: Denies Drug Use Lives In: Home Constitutional: denies: chills, diaphoresis, fatigue, fever, malaise, sweats, weakness, others EENTM: denies: blurred vision, double vision, ear bleeding, ear discharge, ear drainage, ear pain, ear ringing, eye pain, eye redness, hearing loss, mouth pa in, mouth swelling, nasal discharge, nose bleeding, nose congestion, nose pain, photophobia, tearing, throat pain, throat swelling, voice changes, others Respiratory: denies: cough, hemoptysis, orthopnea, SOB at rest, shortness of breath, SOB with excertion, stridor, wheezing, others Cardiovascular: denies: chest pain, dizzy spells, diaphoresis, Dyspnea on exertion, edema, irregular heart beat, left arm pain, lightheadedness, palpitations, PND, syncope, others Gastrointestinal: denies: abdomen distended, abdominal pain, blood streaked bowels, constipated, diarrhea, dysphagia, difficulty swallowing, hematemesis, melena, nausea, poor appetite, poor fluid intake, rectal bleeding, rectal pain, vomiting, others Genitourinary: denies: abnormal vagina bleeding, burning, dyspareunia, dysuria, flank pain, frequency, hematuria, incontinence, pain, , vagina discharge, urgency, others Neurological: reports: dizziness, fainting; denies: headache, left sided numbness, left sided weakness, numbness, paresthesia, pre-existing deficit, right sided numbness, right sided weakness, seizure, speech problems, tingling, tremors, weakness, others Musculoskeletal: reports: back pain; denies: gout, joint pain, joint swelling, muscle pain, muscle stiffness, neck pain, others Integumetry: denies: bruises, change in color, change in hair/nails, dryness, laceration, lesions, lumps, rash, wounds, others Allergic/Immunocompromised: denies: Difficulty Healing, Frequent Infections, Hives, Itching, others Hematologic/Lymphatic: denies: anemia, blood clots, easy bleeding, easy bruising, swollen glands, others Endocrine: denies: excessive hunger, excessive sweating, excessive thirst, excessive urination, flushing, intolerance to cold, intolerance to heat, unexplained weight gain, unexplained weight loss, others Psychiatric: denies: anxiety, bipolar disorder, depression, hopeless, panic disorder, schizophrenia, sleepless, suicidal, others Physical Exam General Appearance: No Apparent Distress, Normal HEENT: Normal ENT Inspection, Pharynx Normal, TMs Normal Neck: Full Range of Motion, Non-Tender, Normal, Normal Inspection Respiratory: Chest Non-Tender, Lungs Clear, No Accessory Muscle Use, No Respiratory Distress, Normal Breath Sounds Cardiovascular: No Edema, No JVD, No Murmur, No Gallop, Normal Peripheral Pulses, Regular Rate/Rhythm Breast Exam: Deferred Gastrointestinal: No Organomegaly, Non Tender, No Pulsatile Mass, Normal Bowel Sounds, Soft Genitalia: Deferred Pelvic: Deferred Rectal: Deferred Extremities: No calf tenderness, Normal capillary refill, Normal inspection, Normal range of motion, Non-tender, No pedal edema Musculoskeletal : Apperance: Normal Neurologic: Alert, carpenter streetcar II-XII nml as Tested, No Motor Deficits, Normal Affect, Normal Mood, No Sensory Deficits Cerebellar Function: Normal Reflexes: Normal Skin: Dry, Normal Color, Warm Lymphatic: No Adenopathy Was a procedure done? Was a procedure done?: No Differential Dx Considerations may include: Anemia, electrolyte imbalance, syncope, fall injury, fractures, head injury X-Ray, Labs, Meds, VS Vital Signs Date Time Temp Pulse Resp B/P (MAP) Pulse Ox O2 Delivery O2 Flow Rate FiO2 09/24/24 21:00 82 16 117/67 (84) 96 09/24/24 19:03 98.1 88 18 140/79 (99) 97 09/24/24 18:54 83 Lab Test 09/24/24 20:10 09/24/24 19:08 09/24/24 18:50 Range/Units Troponin I High Sensitivity 3 L < 3 L </=34 ng/L White Blood Count 7.3 4.4-10.8 10^3/uL Red Blood Count 4.17 4.0-5.20 10^6/uL Hemoglobin 13.9 12.2-16.2 g/dL Hematocrit 41.6 36.0-46.0 % Mean Corpuscular Volume 99.9 80.0-100.0 fL Mean Corpuscular Hemoglobin 33.3 H 28.0-32.0 pg Mean Corpuscular Hemoglobin Concent 33.3 32.0-36.0 g/dL Red Cell Distribution Width 13.8 11.8-14.3 % Platelet Count 164 140-450 10^3/uL Mean Platelet Volume 9.4 6.9-10.8 fL Neutrophils (%) (Auto) 74.2 37.0-80.0 % Lymphocytes (%) (Auto) 16.1 10.0-50.0 % Monocytes (%) (Auto) 6.2 0.0-12.0 % Eosinophils (%) (Auto) 2.4 0.0-7.0 % Basophils (%) (Auto) 1.1 0.0-2.0 % Neutrophils # (Auto) 5.4 1.6-8.6 10 ^3/uL Lymphocytes # (Auto) 1.2 0.4-5.4 10 ^3/uL Monocytes # (Auto) 0.5 0-1.3 10 ^3/uL Eosinophils # (Auto) 0.2 0-0.8 10 ^3/uL Basophils # (Auto) 0.1 0-0.2 10 ^3/uL Nucleated Red Blood Cells 0.0 % Sodium Level 141 136-145 mmol/L Potassium Level 4.0 3.5-5.1 mmol/L Chloride Level 108 H 98-107 mmol/L Carbon Dioxide Level 25 20-31 mmol/L Anion Gap 8 5-15 Blood Urea Nitrogen 26 H 9-23 mg/dL Creatinine 1.26 H 0.550-1.02 mg/dL Glomerular Filtration Rate Calc 42 >90 mL/min BUN/Creatinine Ratio 20.6 H 10.0-20.0 Serum Glucose 220 H 74-106 mg/dL Calcium Level 9.6 8.7-10.4 mg/dL Magnesium Level 1.6 1.6-2.6 mg/dL Total Bilirubin 0.6 0.2-1.0 mg/dL Aspartate Amino Transferase (AST) 16 13-40 U/L Alanine Aminotransferase (ALT) 19 7-40 U/L Alkaline Phosphatase 36 L 46-116 U/L Total Protein 6.1 5.7-8.2 g/dL Albumin 4.0 3.2-4.8 g/dL POC Glucose 220 H 70-106 mg/dl HEST RADIOGRAPH FINDINGS: Lines and Tubes: None Lungs: Hyperinflation, increased AP dimension of the chest. There subsequently ajfw-tf-aswredtbpo compressed midthoracic vertebra. Age indeterminate. Pleura: No effusion. No pneumothorax. Cardiomediastinal contours: Unremarkable Bones: Unremarkable IMPRESSION: 1. No evidence of acute disease. 2. Hyperinflation with increased AP dimension to the chest and several mildly compressed midthoracic vertebra age indeterminate. Time of 1ST Reevaluation: 18:59 Reevaluation 1ST: Unchanged Time of 2ND Reevaluation: 20:00 Reevaluation 2ND: Improved Patient Education/Counseling: Diagnosis, Treatment Family Education/Counseling: Diagnosis, Treatment Departure 1 Departure Time of Disposition: 20:30 Impression: Primary Impression: Syncope and collapse Additional Impression: Contusion of thoracic spine Disposition: 01 HOME / SELF CARE / HOMELESS Condition: Stable Discharged With: Self Critical Care Note Critical Care Time?: No Stability Stability form required: No Heart Score Heart Score: Heart Score Response (Comments) Value History N/A 0 EKG N/A 0 Age N/A 0 Risk Factors N/A 0 Troponin N/A 0 Total 0 I personally scribed for MANUELITO POLO MD ([email or web address]) on 09/24/24 at 19:01. Electronically submitted by Salvatore Lucas ([email or web address]). I personally scribed for MANUELITO POLO MD ([email or web address]) on 09/24/24 at 20:01. Electronically submitted by Salvatore Lucas ([email or web address]). MANUELITO POLO MD Sep 24, 2024 19:01
[2024-09-24 19:18] LABS: Basophils # (auto) 0.1 10 ^3/uL (0-0.2); Basophils % (auto) 1.1 % (0.0-2.0); Eosinophils # (auto) 0.2 10 ^3/uL (0-0.8); Eosinophils % (auto) 2.4 % (0.0-7.0); Hematocrit 41.6 % (36.0-46.0); Hemoglobin 13.9 g/dL (12.2-16.2); Lymphocytes # (auto) 1.2 10 ^3/uL (0.4-5.4); Lymphocytes % (auto) 16.1 % (10.0-50.0); Mean Corpuscular Hemoglobin 33.3 pg (28.0-32.0); Mean Corpuscular Hgb Conc. 33.3 g/dL (32.0-36.0); Mean Corpuscular Volume 99.9 fL (80.0-100.0); Monocytes # (auto) 0.5 10 ^3/uL (0-1.3); Monocytes % (auto) 6.2 % (0.0-12.0); Neutrophils # (auto) 5.4 10 ^3/uL (1.6-8.6); Neutrophils % (auto) 74.2 % (37.0-80.0); Platelet Count (auto) 164 10^3/uL (140-450); Red Blood Cells 4.17 10^6/uL (4.0-5.20); Red Cell Distribution Width 13.8 % (11.8-14.3); White Blood Cell 7.3 10^3/uL (4.4-10.8)
[2024-09-24 19:38] LABS: Alanine Aminotransferase 19 U/L (7-40); Anion Gap 8 (5-15); Aspartate Aminotransferase 16 U/L (13-40); BUN/Creatinine Ratio 20.6 (10.0-20.0); Calcium 9.6 mg/dL (8.7-10.4); Carbon Dioxide 25 mmol/L (20-31); Magnesium 1.6 mg/dL (1.6-2.6); Sodium 141 mmol/L (136-145)
[2024-09-24 19:39] LABS: Bilirubin, Total 0.6 mg/dL (0.2-1.0); Total Protein 6.1 g/dL (5.7-8.2)
--- NOTE | 2024-09-24 19:46 | DVH ---
CHEST RADIOGRAPH Indication: syncope, back pain Technique: Frontal and lateral view of the chest was obtained Comparison: XY CHEST TWO VIEWS ROUTINE on DOS: 03/25/24, XY CHEST TWO VIEWS ROUTINE on DOS: 03/07/24 FINDINGS: Lines and Tubes: None Lungs: Hyperinflation, increased AP dimension of the chest. There subsequently zoux-qs-zvxhvtgapi com pressed midthoracic vertebra. Age indeterminate. Pleura: No effusion. No pneumothorax. Cardiomediastinal contours: Unremarkable Bones: Unremarkable IMPRESSION: 1. No evidence of acute disease. 2. Hyperinflation with increased AP dimension to the chest and several mildly compressed midthoracic vertebra age indeterminate.
[2024-09-24 19:54] LABS: Alkaline Phosphatase 36 U/L (46-116); Blood Urea Nitrogen 26 mg/dL (9-23); Chloride 108 mmol/L (98-107); Glucose 220 mg/dL (74-106)
[2024-09-24 21:00] VITALS: BP 117/67; PULSE 82; RESP 16; O2SAT 96
--- NOTE | 2024-09-28 12:25 | ECG ---
[facility] Test Date: 2024-09-24 Test Time: 18:54:54 Pat Name: LETITIA SCHRADER Department: ED Room: Gender: F Radiology Transporter: JOSEPH : 1940 Requested By: MANUELITO POLO Order Number: [id number] Reading MD: Cristino Evans Measurements Intervals [place] Rate: 83 P: 86 VT: 186 QRS: -11 QRSD: 88 T: 28 QT: 366 QTc: 430 Interpretive Statements Sinus rhythm Abnormal R-wave progression, early transition Electronically Signed On 09-30-2024 13:35:50 PST by Cristino Evans Please click the below link to view image of tracing.
== END 2024-09-24 21:15 | disposition home or self-care (01) ==
LOC: ER 18:50
DX: S20.224A Contusion of middle back wall of thorax, initial encounter (principal); R55 Syncope and collapse; I10 Essential (primary) hypertension; Z79.899 Other long term (current) drug therapy; Z88.6 Allergy status to analgesic agent; Z90.710 Acquired absence of both cervix and uterus; Z98.890 Other specified postprocedural states; X58.XXXA Exposure to other specified factors, initial encounter; Y93.89 Activity, other specified; Y92.89 Other specified places as the place of occurrence of the external cause; Y99.8 Other external cause status
CPT/HCPCS: 36415; 71046; 80053; 82962; 83735; 84484; 85025; 93005

== ENCOUNTER → 2024-09-30 | Outpatient (CLI) | payer MEDICARE, OTHER ==
--- NOTE | 2024-09-30 13:32 | DVH ---
EXAM: CT HEAD WITHOUT CONTRAST HISTORY: SYNCOPY COMPARISON: CT HEAD WITHOUT CONTRAST on DOS: 05/18/24, CT HEAD WITHOUT CONTRAST on DOS: 03/05/24 TECHNIQUE: Axial images of the head were obtained and reformatted in coronal and sagittal planes. All CT scans at this medical facility are performed using dose modulation techniques as appropriate t o a performed exam including the following: Automated exposure control was utilized; adjustment of th e MA and/or KV according to patient size; and use of iterative reconstruction technique. CT Dose: CTDI volume is 49.33 mGy. Dose-length product is 789.27 mGy*cm FINDINGS: There is age concordant generalized parenchymal volume loss . There are chronic microvascular white matter ischemic changes. There is no evidence of acute intracranial hemorrhage, mass, mass effect mid line shift. There is no hydrocephalus or extra-axial fluid collection. The visualized paranasal sinuses and mastoid air cells are clear. The calvarium is intact. IMPRESSION: 1. No acute intracranial process. HS:Y
--- NOTE | 2024-09-30 13:42 | DVH ---
CLINICAL INDICATION: PAIN TECHNIQUE: 3 radiographic views of the right humerus were obtained. Comparison: XY R HAND 3 VIEW XRAY on DOS: 02/19/24, XY L SHOULDER 2+ VIEW XRAY on DOS: 05/31/23 FINDINGS/IMPRESSION: There is no evidence of acute fracture or dislocation. The visualized joint space is well maintained. The alignment is anatomical. There is no radiopaque foreign body.
== END | disposition home or self-care (01) ==
LOC: Rad HDHVI 12:36
PROVIDERS: ATTEND Internal Medicine Cardiovascular Disease
DX: M25.511 Pain in right shoulder (principal); R55 Syncope and collapse
CPT/HCPCS: 70450; 73030

== ENCOUNTER → 2025-02-02 | Outpatient (CLI) | payer MEDICARE, OTHER ==
[2025-02-02 12:45] VITALS: BP 143/74; PULSE 77; RESP 18; O2SAT 97
[2025-02-02] MEDS: SODIUM CHLORIDE 0.9% 500 ML IV ONE (12:52)
[2025-02-02] MEDS: MEROPENEM 1GM IVPB 50 ML IV ONE ×2 (12:54→13:45)
[2025-02-02 15:01] VITALS: BP 154/75; PULSE 70; RESP 18; O2SAT 97
[2025-02-02] MEDS: MEROPENEM 1GM IVPB 100 ML IV ONE (15:05)
== END | disposition home or self-care (01) ==
LOC: CHF HDHVI 12:46
PROVIDERS: ATTEND Internal Medicine Cardiovascular Disease
DX: N39.0 Urinary tract infection, site not specified (principal); M81.0 Age-related osteoporosis without current pathological fracture; E78.00 Pure hypercholesterolemia, unspecified; Z79.899 Other long term (current) drug therapy
CPT/HCPCS: 96365; 96366; G0463; J2185; 96361

== ENCOUNTER → 2025-02-16 | Outpatient (CLI) | payer MEDICARE, OTHER ==
--- NOTE | 2025-02-16 13:43 | DVH ---
XY CHEST TWO VIEWS ROUTINE, HISTORY: SOB COMPARISON: XY CHEST TWO VIEWS ROUTINE on DOS: 09/24/24, XY CHEST TWO VIEWS ROUTINE on DOS: 03/25/24, XY CHEST TWO VIEWS ROUTINE on DOS: 03/07/24 XY CHEST TWO VIEWS ROUTINE on DOS: 09/24/24, XY CHEST TWO VIEWS ROUTINE on DOS: 03/25/24, XY CHEST TWO VIEWS ROUTINE on DOS: 03/07/24 TECHNICAL DATA: 2 view of the chest was obtained. FINDINGS: Lines and tubes: None Cardiomediastinal silhouette: normal Pulmonary vasculature: normal Lung expansion: normal Lung airspace: normal Lung interstitium: normal Pleura: normal Pneumothorax: no Bones: Mid thoracic vertebral body compression deformity. Other: no IMPRESSION: No acute intrathoracic abnormality.
== END | disposition home or self-care (01) ==
LOC: Rad HDHVI 10:40
PROVIDERS: ATTEND Internal Medicine Cardiovascular Disease
DX: R06.02 Shortness of breath (principal)
CPT/HCPCS: 71046

== ENCOUNTER 2025-04-19 11:01 | Outpatient (CLI) | payer MEDICARE, OTHER | END 2025-04-19 17:00 | disposition home or self-care (01) | LOC: Rad HDHVI 11:01 | PROVIDERS: ATTEND Internal Medicine Cardiovascular Disease | DX: I08.3 Combined rheumatic disorders of mitral, aortic and tricuspid valves (principal); R55 Syncope and collapse | CPT/HCPCS: 93306 ==

== ENCOUNTER → 2025-04-23 | Outpatient (CLI) | payer MEDICARE, OTHER ==
[2025-04-23 12:10] VITALS: BP 123/72; PULSE 61; RESP 20; O2SAT 96
[2025-04-23] MEDS: SODIUM CHLORIDE 0.9% 500 ML IV ONE (12:20)
[2025-04-23] MEDS: MEROPENEM 1GM IVPB 50 ML IV ONE ×2 (12:25)
[2025-04-23 14:55] VITALS: BP 138/59; PULSE 65; RESP 18; O2SAT 97
== END | disposition home or self-care (01) ==
LOC: CHF HDHVI 12:06
PROVIDERS: ATTEND Internal Medicine Cardiovascular Disease
DX: N39.0 Urinary tract infection, site not specified (principal); E86.0 Dehydration
CPT/HCPCS: 96365; 96366; G0463; J2185; J7040; 96360; 96361; 96368

== ENCOUNTER → 2025-04-28 | Outpatient (CLI) | payer MEDICARE, OTHER | END | disposition home or self-care (01) | LOC: Rad HDHVI 10:44 | PROVIDERS: ATTEND Internal Medicine Cardiovascular Disease | DX: R42 Dizziness and giddiness (principal); R06.02 Shortness of breath | CPT/HCPCS: 93880 ==